=== PATIENT | female | born 1960 | race African-American/Black ===

== ENCOUNTER 2024-04-26 22:15 | Emergency (ER) | payer OTHER, SELFPAY ==
[2024-04-26 22:17] VITALS: BP 193/109; PULSE 89; RESP 15; TEMP 36.3; O2SAT 99
--- NOTE | 2024-04-26 23:54 | ED.BURNSMOKE ---
HPI - Burn/Smoke Inhalation General Chief complaint: Burn/Smoke Inhalation Stated complaint: bilateral hand huntley Time Seen by Provider: 04/26/24 23:26 Source: patient Mode of arrival: ambulatory Limitations: no limitations History of Present Illness HPI Narrative: This is a 63 year old female that presents to the ER for bilateral hand huntley. Reports she was using a hot glue gun tonight and accidentally got hot glue on her hands. Reports huntley to the right palm and left dorsal hand. She is up-to-date on tetanus vaccination. Review of Systems Review of Systems: CONSTITUTIONAL: Denies fever SKIN: Reports burn NEUROLOGIC: Denies numbness All systems reviewed & are unremarkable except as noted in HPI and below PMFSH Past Medical History Medical History (Updated 04/27/24 @ 00:30 by Xin Elizabeth PA-C) History of hypertension Social History Social History (Updated 04/26/24 @ 23:59 by Xin Elizabeth PA-C) Substance use: never Exam Narrative: GENERAL: Well-appearing, well-nourished, and in no acute distress. HEAD: Normocephalic, atraumatic. EYES: EOMI. EXTREMITIES: Normal range of motion. Mild edema with a few small blisters to the right hand palmar surface SKIN: Warm, dry, no rash. NEURO: No focal deficits. Alert and oriented x3. PSYCH: Normal mood and affect Course Course Emergency Course: patient educated on wound care Vital Signs Vital signs: Vital Signs Temperature 97.4 F L 04/26/24 22:17 Pulse Rate 89 04/26/24 22:17 Respiratory Rate 15 04/26/24 22:17 Blood Pressure 193/109 H 04/26/24 22:17 Pulse Oximetry 99 04/26/24 22:17 Oxygen Delivery Room Air 04/26/24 22:17 Temperature 97.4 F L 04/26/24 22:17 Pulse Rate 89 04/26/24 22:17 Respiratory Rate 15 04/26/24 22:17 Blood Pressure 193/109 H 04/26/24 22:17 Pulse Oximetry 99 04/26/24 22:17 Oxygen Delivery Room Air 04/26/24 22:17 MDM - Burn/Smoke Inhalation MDM Narrative Medical decision making narrative: patient presents to the emergency department for huntley present to her hands from a hot glue gun. Small burn noted to the right hand palmar surface with small blisters present. No notable injury to the left hand. She is up-to-date on tetanus vaccination. Wounds were cleansed and covered with antibiotic ointment and a bandage. She was educated on further wound care. She is to follow up with primary provider. She was given warnings to return to the ER Critical Care Time Critical Care Time Critical Care Time: No Discharge Plan Discharge Clinical Impression: Burn of hand Qualifiers: Encounter type: initial encounter Burn of hand location: palm Laterality: right Burn degree: partial thickness (2nd degree) Qualified Code(s): T23.251A - Burn of second degree of right palm, initial encounter Patient Disposition: Home, Self-Care Condition: Stable Instructions: Antibiotic Form Additional Instructions: Return to the emergency department if you experience fever, redness or swelling of your wound, abnormal drainage from your wound, or any other symptoms that are concerning to you. Apply antibiotic ointment daily. Do not soak the wound. Clean with mild soap and water daily Follow-up with your primary care doctor for wound check Patient Language: French Follow-up/Referrals: UNKNOWN,DOCTOR [Non-Staff] -
[2024-04-27 00:42] VITALS: BP 146/105; PULSE 93; RESP 16; O2SAT 100
[2024-04-27] MEDS: traMADol HCL (*CRX) 50 MG TABLET PO (00:52)
--- OUTSIDE RECORDS SUMMARY | 2024-05-04 00:10 | XMS_ITS | Encounter Summary ---
Author Organization [facility] Address [address] [place] [address]. [place] [address] [place] [address] Care Team Providers Care Brick Shader Name Role Phone Josiah Guzman Primary Care Provider [phone] Reason for Visit * Reason Onset Date Comments Referral 04/17/2023 Encounter Details Date Type Department Care Team (Late st Contact Info) Description 04/17/2023 Telephone [facility] Orthopedic & Sports Medicine - [place] [address] [place] [address] Tae Myers MD [address] [place] [address] Referral Social History Tobacco Use Types Packs/Day Years Used Date Smoking Tobacco: Never Assessed Comments Unknown Sex and Gender Information Value Date Recorded Sex Assigned at Not on file Legal Sex Female 4:05 PM APPLICATION PACKAGING CONSULTANT Gender Identity Not on file Sexual Orientation Not on file documented as of this encounter Progress Notes * Georgiana Wakefield RN - 04/26/2023 3:54 PM CST Will wait for disk ICATION PACKAGING CONSULTANT * Iveth Perez - 04/26/2023 12:43 PM CSTSummary: Referral - RT hand Patient called back in about letter received - her information is all updated - we had incorrect phone numbers. Date of injury was November or December and while moving she noticed that she hurt the RT index finger. She said currently she had it wrapped up but it did lock up once since on her. She is having hard time trying to chop things and cook. She will be dropping on the disc and report to us hopefully by tomorrow. Address given. RT index injury [phone] ICATION PACKAGING CONSULTANT * Georgiana Wakefield RN - 04/20/2023 1:36 PM CST 3rd call lvm ICATION PACKAGING CONSULTANT * Georgiana Wakefield RN - 04/18/2023 1:09 PM CST 2nd call lvm If pt calls back see task below ICATION PACKAGING CONSULTANT * Georgiana Wakefield RN - 04/17/2023 11:54 AM CST Called pt from referral no answer left message to call back. When pt calls back we need more information on why patient needs to be see.when date of injury is and we need a copy of xray on disk and report prior to seeing patient. ICATION PACKAGING CONSULTANT documented in this encounter Plan of Treatment Not on file documented as of this encounter Visit Diagnoses Not on filedocumented in this encounter Care Teams Brick Shader Relationship Specialty Start Date End Date Josiah Guzman PA [address] [address] PCP - General PHYSICIAN HYDROGEOLOGY PROFESSOR 04/17/23 documented as of this encounter
--- OUTSIDE RECORDS SUMMARY | 2024-05-04 00:10 | XMS_ITS | Encounter Summary ---
Author Organization [facility] Address [address] [place] [address]. [place], [place] [address] [place] [id number] Care Team Providers Care Tin Recovery Worker Name Role Phone Josiah Guzman Primary Care Provider [phone] Reason for Referral * Occupational Therapy (Routine) - Closed Specialty Diagnoses / Procedures Referred By Contact Referred To Contact Occupational Therapy / [facility] Occupational Therapy Diagnoses Finger pain, right OA (osteoarthritis) of finger, right Procedures OFFICE/OUTPATIENT NEW LOW MDM 30-44 MINUTES OFFICE/OUTPT VISIT,NEW,LEVL IV OFFICE/OUTPT VISIT,NEW,LEVL V OFFICE/OUTPT VISIT,EST,LEVL III OFFICE/OUTPT VISIT,EST,LEVL IV OFFICE/OUTPT VISIT,EST,LEVL V Elizabeth Emery MD [address] [place] [address] Phone: tel: fax: [facility] [place] [address] Phone: tel: fax: Referral ID Status Reason Start Date Expiration Date V isits Requested Visits Authorized [id number] Closed Specialty Services 05/09/2023 09/06/2023 16 16 ING UNDERWRITER Reason for Visit * Reason Comments New Patient Rt index finger inju ry from 12/2022. Pain worse at night. * Consultation/Treatment (Routine) - Closed Specialty Diagnoses / Procedures Referred By Contac t Referred To Contact ORTHOPAEDICS Diagnoses Displaced fracture of middle phalanx of finger of right hand Josiah Guzman PA [address] [address] Phone: tel: fax: Tae Myers MD [address] [place] [address] Phone: tel: fax: Referral ID Status Reason Start Date Expiration Date Visits Re quested Visits Authorized [id number] Closed 04/07/2023 04/06/2024 4 4 Encounter Details Date Type Department Care Team (Late st Contact Info) Description 05/14/2023 2:00 PM SELLING UNDERWRITER Office Visit [facility] Orthopedic & Sports Medicine - [place] [address] [place] [address] Elizabeth Emery MD [address] [place], [place] [phone] New Patient (Rt index finger injury from 12/2022. Pain worse at night. ) Social History Tobacco Use Types Packs/Day Years Used Date Smoking Tobacco: Never Passive Smoke Exposure: Never Smokeless Tobacco: Never Tobacco Cessation:Counseling Given: No Alcohol Use Standard Drinks/Week Comments Never 0 (1 standard drink = 0.6 oz pur e alcohol) PHQ-2 Answer Date Recorded Patient Health Questionnaire-2 Score 0 05/14/2023 Comments Unknown Sex and Gender Information Value Date Recorded Sex Assigned at Not on file Legal Sex Female 4:05 PM SELLING UNDERWRITER Gender Identity Not on file Sexual Orientation Not on file documented as of this encounter Last Filed Vital Signs Vital Sign Reading Time Taken Comments Blood Pressure 152/94 05/14/2023 2:49 PM SELLING UNDERWRITER Pulse 82 05/14/2023 1:57 PM SELLING UNDERWRITER Temperature 36.3 ??C (97.4 ??F) 05/14/2023 1:57 PM CS T Respiratory Rate - - Oxygen Saturation - - Inhaled Oxygen Concentration - - Weight 97.3 kg (214 lb 6.4 oz) 05/14/2023 1:57 P M SELLING UNDERWRITER Height 156.2 cm (5' 1.5 ) 05/14/2023 1:57 PM SELLING UNDERWRITER Body Mass Index 39.85 05/14/2023 1:57 PM SELLING UNDERWRITER documented in this encounter Progress Notes * Elizabeth Emery MD - 05/14/2023 2:00 PM CST Images from the original note were not included. Office Progress Note Reason for Visit: New Patient (Rt index finger injury from 12/2022. Pain worse at night. ) History of Present Illness: Patient referred for evaluation of chronic right index finger pain. Has noted pain symptoms in the finger since injury event in December of this year when she was moving boxes. Initially with significant swelling at the PIP aspect of the finger along with diffuse swelling from the DIP down to the MCP. Associated with some stiffness and difficulty with flexion gripping activities. Patient treated conservatively with relative rest and decreased use/gripping activities. Unfortunately has had persistent pain symptoms over the last several months. Prompted visit to her primary care physician for evaluation. Did get an x-ray obtained at the end of March on-base. X-ray showed some tiny ossifications well-corticated at the DIP of the index finger ulnar aspect. Had some minor degenerative changesnoted at the MCP and PIP of the digit as well with some spurring but fairly well-preserved joint spacing. No other bony abnormality appreciated. Patient has not had any directed treatments to her finger. Has not splinted finger.'s not using anymedications for pain symptoms other than occasional Tylenol no previous significant injury to the right hand or index finger. Patient is right-handed. Patient most interested in understanding becauseof pain symptoms and any treatment options going forward to help alleviate pain symptoms and improve function. Patient still notes some mild diffuse swelling throughout the finger primarily at the PIP going down to the MCP. Has had occasional catching sensation in the finger mostly at the PIP. Past medical/surgical/medication list history reviewed updated as written below. ROS: Musculoskeletal: See HPI Constitutional: Negative. Skin: Negative. Neurological: Negative. Respiratory: Negative. Cardiovascular: Negative Endo/Heme/Allergies: Negative. Gastrointestinal: Negative. Genitourinary: Negative. Medications: Current Outpatient Medications: albuterol sulfate HFA 108 (90 Base) MCG/ACT inhaler, , Disp: , Rfl: calcium carb-cholecalciferol (CALTRATE+D) 600-10 MG-MCG Tab tablet, , Disp: , Rfl: cetirizine (ZYRTEC) 10 MG tablet, , Disp: , Rfl: diclofenac sodium (VOLTAREN) 1 % gel, Apply 2 g topically 2 (two) times daily as needed., Disp: 100g, Rfl: 2 docusate sodium (COLACE) 100 MG capsule, , Disp: , Rfl: fluocinonide (LIDEX) 0.05 % cream, , Disp: , Rfl: meloxicam (MOBIC) 15 MG tablet, , Disp: , Rfl: montelukast (SINGULAIR) 10 MG tablet, , Disp: , Rfl: omega-3 fatty acid (FISH OIL) 500 MG capsule, , Disp: , Rfl: [place]-3 Fatty Acids (OMEGA III EPA+DHA) 1000 MG Cap, , Disp: , Rfl: omeprazole (PRILOSEC) 40 MG capsule, , Disp: , Rfl: oyster shell calcium 500 mg, elemental, (OSCAL) 500 MG tablet, , Disp: , Rfl: rosuvastatin (CRESTOR) 20 MG tablet, , Disp: , Rfl: telmisartan (MICARDIS) 40 MG tablet, , Disp: , Rfl: vitamin D3, cholecalciferol, 125 mcg capsule, , Disp: , Rfl: Allergies: Allergies Allergen Reactions Erythromycin Rash Tetracycline Rash Rash in mouth Medical History: Past Medical History: Diagnosis Date Arthritis Hypertension Surgical History: Past Surgical History: Procedure Laterality Date APPENDECTOMY Social History: Social History Socioeconomic History Marital status: Tobacco Use Smoking status: Never Passive exposure: Never Smokeless tobacco: Never Vaping Use Vaping Use: Never used Substance and Sexual Activity Alcohol use: Never Drug use: Never Family History: Family History Problem Relation Name Age of Onset Heart Disease Mother [place] Diabetes Maternal Grandmother Darline VITALS: Filed Vitals: 05/14/23 1357 BP: (!) 143/90 Pulse: 82 Temp: 97.4 ??F (36.3 ??C) TempSrc: Temporal Weight: 97.3 kg (214 lb 6.4 oz) Height: 1.562 m (5' 1.5 ) PE: Physical exam: General: Patient's appearance is normal, well-nourished, well-developed, no apparent distress Neuro psych: Alert and oriented x4, normal voice/speech/tone, normal judgment and mood Skin: No significant rash or erythematous eruption, swelling or evidence of skin infection Neuromuscular: General strength and tone throughout normal gait is normal Musculoskeletal: Right hand/index finger: Very mild swelling noted to the index finger from the PIP down to the MCP.No swelling at the DIP. No deformity appreciated. No redness. Patient is able to flex fully at the MCP PIP and DIP though with some stiffness appreciated along all 3 joints. Mild tenderness to palpation dorsal and radial aspect of the MCP, volar and dorsal aspect of the PIP and radial aspect of theDIP. No shaft tenderness palpation along the distal middle or proximal phalanx. No metacarpal tenderness to palpation. All joints of all other digits are nontender to palpation. No radial or ulnar laxity across the MCP DIP or PIP of the index finger. Procedures X-ray as detailed in the HPI Diagnoses/Impression: 1. Finger pain, right Ambulatory referral to Occupational Therapy diclofenac sodium (VOLTAREN) 1 % gel 2. OA (osteoarthritis) of finger, right Ambulatory referral to Occupational Therapy diclofenac sodium (VOLTAREN) 1 % gel Recommendations and Plan: Right finger pain across multiple joints DIP PIP and MCP consistent with degenerative arthritis with or without soft tissue injury sprain. Possibility of old avulsion fracture of the distal aspect ofthe middle phalanx. Recommend optimizing conservative treatment to include occupational/hand therapy for range of motion and modality treatment. May try diclofenac gel/cream application to the jointsto relieve pain symptoms from arthritis. Finger silicone sleeve provided as well for comfort. Plan follow-up 6 weeks after occupational therapy and gel treatment applications. All questions answered patient agrees with plan I personally spent _30____ minutes spent total on patient encounter today. This includes [id number] and non [id number] time with review of chart and studies, interval history and physical exam, decision making process, ordering of diagnositic/therapeutic tests or procedures, educational and prevention counseling and excludes time spent performing separately reportable services I personally spent additional ____ minutes during encounter today performing therapeutic or diagnostic procedure(s). ELIZABETH EMERY MD 05/14/2023 Portions of this note were dictated using [employer] speech recognition software. Occasional wrong wordor sound-alike substitutions may have occurred due to the inherent limitations of voice recognition software. Please read the chart carefully and recognize, using context, where the substitutions may have occurred. ING UNDERWRITER documented in this encounter Plan of Treatment Scheduled Referrals Name Type Priority Associated Diagnoses Orde r Schedule Ambulatory referral to Occupational Therapy Referral Routine Finger pain, right OA (osteoarthritis) of finger, right Ordered: 05/14/2023 documented as of this encounter Visit Diagnoses Diagnosis Finger pain, right- Primary Pain in limb OA (osteoarthritis) of finger, right documented in this encounter Care Teams Tin Recovery Worker Relationship Specialty Start Date End Date Josiah Guzman PA [address] [phone] PCP - General PHYSICIAN GIN OPERATOR 04/17/23 documented as of this encounter
--- OUTSIDE RECORDS SUMMARY | 2024-05-04 00:10 | XMS_ITS | Encounter Summary ---
Author Organization [facility] Address [address] [place] [address]. [place], [place] [address] [place] [address] Care Team Providers Care Sql Server Bi Developer Name Role Phone Josiah Guzman Primary Care Provider [phone] Reason for Visit * Reason Comments Finger Injury * Occupational Therapy (Routine) - Closed Specialty Diagnoses / Procedures Referred By Contact Referred To Contact Occupational Therapy / [facility] Occupational Therapy Diagnoses Finger pain, right OA (osteoarthritis) of finger, right Procedures OFFICE/OUTPATIENT NEW LOW MDM 30-44 MINUTES OFFICE/OUTPT VISIT,NEW,LEVL IV OFFICE/OUTPT VISIT,NEW,LEVL V OFFICE/OUTPT VISIT,EST,LEVL III OFFICE/OUTPT VISIT,EST,LEVL IV OFFICE/OUTPT VISIT,EST,LEVL V Hong Pena MD [address] [place] [address] Phone: tel: fax: [facility] [place] [address] Phone: tel: fax: Referral ID Status Reason Start Date Expiration Date V isits Requested Visits Authorized [id number] Closed Specialty Services 05/09/2023 09/06/2023 16 16 Encounter Details Date Type Department Care Team (Latest Contact Info) Description 05/24/2023 12:45 PM FLASK CLEANER - 05/24/2023 11:59 PM FLASK CLEANER Hospital Encounter [facility] [place] [address] oHng Pena MD [address] [place] [address] Ileana Gunderson, [place] [address] Finger Injury Discharge Disposition: Home or Self Care (Routine Discharge) Social History Tobacco Use Types Packs/Day Years Used Date Smoking Tobacco: Never Passive Smoke Exposure: Never Smokeless Tobacco: Never Alcohol Use Standard Drinks/Week Comments Never 0 (1 standard drink = 0.6 oz pur e alcohol) PHQ-2 Answer Date Recorded Patient Health Questionnaire-2 Score 0 05/14/2023 Comments Unknown Sex and Gender Information Value Date Recorded Sex Assigned at Not on file Legal Sex Female 4:05 PM FLASK CLEANER Gender Identity Not on file Sexual Orientation Not on file documented as of this encounter Discharge Instructions * Patient Instructions* Ileana Gunderson, OTR - 05/24/2023 12:45 PM FLASK CLEANER Access Code: [email or web address] URL: [email or web address] Date: 05/24/2023 Prepared by: Ileana Gunderson Exercises - Seated Finger MP PROM - 3-4 x daily - 7 x weekly - 1 sets - 1-2 reps - 30-60 seconds hold - Seated Finger PIP Flexion PROM - 3-4 x daily - 7 x weekly - 1 sets - 1-2 reps - 30-60 seconds hold - Seated Finger Composite Flexion Stretch - 3-4 x daily - 7 x weekly - 1 sets - 1-2 reps - 30-60 seconds hold - Finger MP Flexion AROM - 3-4 x daily - 7 x weekly - 1 sets - 10-15 reps - Seated Finger PIP Flexion AROM - 3-4 x daily - 7 x weekly - 1 sets - 10-15 reps - Finger Spreading - 3-4 x daily - 7 x weekly - 1 sets - 10-15 reps - Seated Claw Fist AROM - 10 x daily - 7 x weekly - 1 sets - 10-20 reps - Hand AROM Composite Flexion - 10 x daily - 7 x weekly - 1 sets - 10-20 reps K CLEANER documented in this encounter Medications at Time of Discharge albuterol sulfate HFA 108 (90 Base) MCG/ACT inhaler 04/05/2023 calcium carb-cholecalcif dahiana (CALTRATE+D) 600-10 MG-MCG Tab tablet 10/27/2022 cetirizine (ZYRTEC) 10 MG tablet 04/05/2023 diclofenac sodium (VOLTAREN) 1 % gelIndications:F osei pain, right,OA (osteoarthritis) of finger, right Apply 2 g topically 2 (two) times daily as needed. 100 g 2 05/14/2023 docusate sodium (COLACE) 100 MG capsule 04/05/2023 fluocinonide (LIDEX) 0.05 % cream 09/23/2022 meloxicam (MOBIC) 15 MG tablet 04/05/2023 montelukast (SINGULAIR) 10 MG tablet 04/05/2023 omega-3 fatty acid (FISH OIL) 500 MG capsule 05/16/2022 Mcgraws-3 Fatty Acids (OMEGA III EPA+DHA) 1000 MG Cap 10/27/2022 omeprazole (PRILOSEC) 40 MG capsule 12/08/2022 oyster shell calcium 500 mg, elemental, (OSCAL) 500 MG tablet 04/05/2023 rosuvastatin (CRESTOR) 20 MG tablet 04/05/2023 telmisartan (MICARDIS) 40 MG tablet 04/05/2023 vitamin D3, cholecalciferol, 125 mcg capsule 04/05/2023 documented as of this encounter Progress Notes * Ileana Gunderson, OTR - 05/24/2023 12:45 PM CST Occupational Therapy Evaluation Patient name: Ivon Ibrahim : 1960 Eval Date: 05/24/2023 Diagnosis: SNOMED CT(R) 1. Pain in finger of right hand PAIN IN FINGER OF RIGHT HAND 2. OA (osteoarthritis) of finger, right OSTEOARTHRITIS OF FINGER JOINT OF RIGHT HAND 3. Weakness ASTHENIA 4. Stiffness in joint JOINT STIFFNESS Start time: 1245 End Time: 1345 Subjective: Pain Level 3-4/10. At worst pain: 10/10 At best pain: 1/10 See patient intake form for details. Injury in December of 2022. Pt was carrying a moving box and hitin door frame. Pain comes and goes and some days are better than others. Patient reports pain and difficulty with cutting with knife. Has trouble with washing her hands. Typing and using her mouse causes difficulty. Trouble pushing lotion bottles. 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 Patient enjoys sewing, patient, makes body products, wood working. Past Medical History: Diagnosis Date Arthritis Hypertension Current Outpatient Medications Medication Instructions albuterol sulfate HFA 108 (90 Base) MCG/ACT inhaler calcium carb-cholecalciferol (CALTRATE+D) 600-10 MG-MCG Tab tablet cetirizine (ZYRTEC) 10 MG tablet diclofenac sodium (VOLTAREN) 2 g, Topical, 2 times daily PRN docusate sodium (COLACE) 100 MG capsule fluocinonide (LIDEX) 0.05 % cream meloxicam (MOBIC) 15 MG tablet montelukast (SINGULAIR) 10 MG tablet omega-3 fatty acid (FISH OIL) 500 MG capsule Mcgraws-3 Fatty Acids (OMEGA III EPA+DHA) 1000 MG Cap omeprazole (PRILOSEC) 40 MG capsule oyster shell calcium 500 mg, elemental, (OSCAL) 500 MG tablet rosuvastatin (CRESTOR) 20 MG tablet telmisartan (MICARDIS) 40 MG tablet vitamin D3, cholecalciferol, 125 mcg capsule Objective: Orientation: AxOx4 Direction Following: WNL Behavior: cooperative Attention: on task Comments: Patient is right hand dominant. Edema: R DPC 18.6 cm R IF PIP 6.7 cm L DPC 18.2 cm L IF PIP 6.5 cm Palpation: Tender along lateral and medial aspects of index finger. Sensation: Pt denies numbness/tingling. Comments: R UE wrist AROM and strength normal. Digit ROM (degrees) RT: Active IF MPJ flex/ext(90??/+20??) 38 IF VWS=493 PIPJ flex/ext (100??/0??) 92 DIPJ flex/ext (70??/0??) 28 Strength (lbs) Rt UE Rt UE Rt UE Mean LT UE Gross Grasp 20 19 24 20.67 50 2 Point Prehension 4 4 8 3 Jaw Tyron Prehension 7 7 10 Lateral Prehension 10 10 16 second and third trials not completed due to pain Additional Comments: 9 hole peg test R 0:33 Patient Rated Wrist Hand Evaluation 59% impaired O: Initial Evaluation completed with patient education on evaluation findings and plan of care. HEP Instruction: verbal, written , and demonstrational instruction Other Rx: Educated on incorporating use of her index finger into every day activities in pain free manner. Issued compression sleeve with wearing schedule discussed. Outcome tool: see above Timed Codes: (Minutes = Units) 8 to 22=1 23 to 37=2 38 to 52=3 53 to 67=4 Timed Code Tx Minutes 15 Units 1 Total Tx Time 60 15 Therapeutic Exercise, 45 Mod Procedures: Eval 16v approved A: Patient demonstrated good understanding of above education and HEP. Rehab Potential: good OT COMPLEXITY Profile: Moderate-Espanded medical and therapy history and additional review of physical, cognitiveand psychosocial history. Assessment/Performance Deficits: Motor: Aligns, Stabilizes, Positions, Bends, Flotation Operator, Moves, Lifts, and Endures HIGH (5 or more) Clinical Decision Making Statement/Assessment: MODERATE Analytic Complexity Ivon Ibrahim is pleasant 62 year old female referred to skilled Occupational Therapy following injury to her right/indexfinger in December of 2022. She presents today with pain, edema, decreased range of motion, decreasedgrip/pinch strength affecting ability to engage in daily tasks and occupations. She would benefit from skilled Occupational Therapy to address the above concerns in order to improve independence, success, and safety with ADLs, IADLs, work and leisure pursuits as well as improving her quality of life. Overall Evaluation Complexity Level: Eval - MOD Ivon Ibrahim presents to the department with the following problems: Increased pain AROM Limitations Decreased Strength Decreased cemetery manager strength Decreased pinch strength Increased edema Functional limitations Impaired fine motor coordination Her goals have been established collaboratively with the therapist. She has been instructed of the risk and benefits of outpatient occupational therapy and agrees with the plan of care. Patient's Goal: regain mobility in my finger, less pain Short Term Goals: (Achieve by: re-evaluation ) Increase AROM/PROM R IF MP flexion 60 degrees or greater for daily tasks Decrease pain to 1/10 or less during functional activities to improve quality of life. Decrease edema R IF PIP 6.6 cm or less for greater freedom of movement. Independent with HEP for improved carryover of learned tasks and activities. Increase cemetery manager strength R hand 32# for cooking tasks. Increase pinch strength increase R hand 2pt/3pt/lateral pinch by 2# each for work activities. Independent with prior functional limitations per patient report Pt to complete 9 hold peg test R hand in 0:30 for work activities. Halfway Goals: (Achieve by: discharge ) 1.) Ivon Ibrahim to report score on PRWHE to 30% impaired or less for improved quality of life. 2.) Ivon Ibrahim to demonstrate WREN of her R IF to 200 or greater for daily tasks and activities. P: Skilled occupational therapy to include: AROM, PROM, Strengthening, Manual Therapy, Fluidotherapy, ADL retraining, Patient Education, Home exercise program, and fine motor coordination Next Visit: Review HEP and patient education, complete reevaluation and review/update HEP as needed If patient feels need to return to therapy prior to re-evaluation, utilize hot pack prior to activity, passive stretching, cemetery manager/pinch strengtheing Frequency: 1 times per week for 30-60 minutes for 4-6 visits. At this time, due to pt work schedule, she plans to complete her home program and return prior to her MD appt for re-evaluation. She is to contact clinic if she feels need to return sooner for direct treatment. Therapist: EMILIE MIRAMONTES Date: 05/24/23 Time: 12:45 PM Physician Signature: Date: Time: Ivon Ibrahim 1960 Cosigned by Hong Pena MD at 05/24/2023 2:58 PM FLASK CLEANER K CLEANER K CLEANER documented in this encounter Plan of Treatment Not on file documented as of this encounter Visit Diagnoses Diagnosis Pain in finger of right hand- Primary Pain in limb OA (osteoarthritis) of finger, right Weakness Other malaise and fatigue Stiffness in joint Stiffness of joint, not elsewhere classified, unspecified site documented in this encounter Care Teams Sql Server Bi Developer Relationship Specialty Start Date End Date Josiah Guzman PA [address] [address] PCP - General PHYSICIAN SHOE CUTTER 04/17/23 documented as of this encounter
--- OUTSIDE RECORDS SUMMARY | 2024-05-04 00:10 | XMS_ITS | Encounter Summary ---
Author Organization [facility] Address [address] [place] [address]. [place], [place] [address] [place] [address] Care Team Providers Care Anesthesia Attending Name Role Phone Josiah Guzman Primary Care Provider [phone] Reason for Visit * Reason Comments Finger Injury * Occupational Therapy (Routine) - Closed Specialty Diagnoses / Procedures Referred By Contact Referred To Contact Occupational Therapy / [facility] Occupational Therapy Diagnoses Finger pain, right OA (osteoarthritis) of finger, right Procedures OFFICE/OUTPATIENT NEW LOW MDM 30-44 MINUTES OFFICE/OUTPT VISIT,NEW,LEVL IV OFFICE/OUTPT VISIT,NEW,LEVL V OFFICE/OUTPT VISIT,EST,LEVL III OFFICE/OUTPT VISIT,EST,LEVL IV OFFICE/OUTPT VISIT,EST,LEVL V Hong Pena MD [address] [place] [address] Phone: tel: fax: [facility] [place] [address] Phone: tel: fax: Referral ID Status Reason Start Date Expiration Date V isits Requested Visits Authorized [id number] Closed Specialty Services 05/09/2023 09/06/2023 16 16 Encounter Details Date Type Department Care Team (Latest Contact Info) Description 06/21/2023 2:45 PM SHEAR SETTER - 06/21/2023 11:59 PM SHEAR SETTER Hospital Encounter [facility] [place] [address] Hong Pena MD [address] [place] [address] Ileana Gunderson, [place] [address] Finger Injury Discharge Disposition: Home or Self [...] on file Legal Sex Female 4:05 PM SHEAR SETTER Gender Identity Not on file Sexual Orientation Not on file documented as of this encounter Medications at Time of Discharge [...] acid (FISH OIL) 500 MG capsule 05/16/2022 Archer-3 Fatty Acids (OMEGA III EPA+DHA) 1000 MG Cap 10/27/2022 omeprazole (PRILOSEC) 40 MG capsule 12/08/2022 oyster shell calcium 500 mg, elemental, (OSCAL) 500 MG tablet 04/05/2023 rosuvastatin (CRESTOR) 20 MG tablet 04/05/2023 telmisartan (MICARDIS) 40 MG tablet 04/05/2023 vitamin D3, cholecalciferol, 125 mcg capsule 04/05/2023 documented as of this encounter Progress Notes * Ileana Gunderson, OTR - 06/21/2023 2:45 PM CST [facility] [address] [facility] [place] [address] [place] [address] Occupational Therapy UE Discharge Summary Name: Ivon Ibrahim : 1960 Time in: 1450 Time out: 1530 Diagnosis: SNOMED CT(R) 1. Pain in finger of right hand PAIN IN FINGER OF RIGHT HAND 2. OA (osteoarthritis) of finger, right OSTEOARTHRITIS OF FINGER JOINT OF RIGHT HAND 3. Weakness ASTHENIA 4. Stiffness in joint JOINT STIFFNESS Date: 06/21/23 Reporting Period from 05/24/23 to 06/21/23 Visits: 2 (pt return to OT for re-evaluation after completing home program) Missed appt: 0 HEP compliance: Good Pain: 0/10 at rest 4/10 with activities Edema: R DPC 18.2 cm (18.6 cm) R IF PIP 6.4 cm (6.7 cm) Sensation: denies numbness/tingling Strength (lbs) right hand Current Status (06/21/23 Eval Status (05/24/23) Gross Grasp 50 20.67 2 point prehension 9 4 3 point prehension 12 7 Lateral prehension 15 10 DIGIT ROM Digit ROM (Degrees) Current Status (06/21/23) Eval Status (05/24/23) IF MPJ flex/ext (90/+20) 64 38 PIP flex/ext (100/0) 94 92 DIP flex/ext (70/0) 60 28 IF WREN 218 158 Current Function: Still feels she has some swelling in her finger. Pain can increase with use of her finger. Washing hands has gotten better as has pushing lotion bottles. Using her mouse all day can cause pain after working the entire day. Typing can cause DIP joint in her finger. Feels that her finger has improvedwith doing her home program. 9 hole peg test R 0:19 (0:33) Patient Rated Wrist Hand Evaluation 22% impaired Patient's Goal: regain mobility in my finger, less pain Short Term Goals: (Achieve by: re-evaluation ) Goal met Increase AROM/PROM R IF MP flexion 60 degrees or greater for daily tasks Goal met Decrease pain to 1/10 or less during functional activities to improve quality of life. Goal met Decrease edema R IF PIP 6.6 cm or less for greater freedom of movement. Goal met Independent with HEP for improved carryover of learned tasks and activities. Goal met Increase ship carpenter strength R hand 32# for cooking tasks. Goal met Increase pinch strength increase R hand 2pt/3pt/lateral pinch by 2# each for work activities. Goal met Independent with prior functional limitations per patient report Goal met Pt to complete 9 hold peg test R hand in 0:30 for work activities. Bistro Attendant Goals: (Achieve by: discharge ) 1.) goal met Ivno Ibrahim to report score on PRWHE to 30% impaired or less for improved quality of life. 2.) goal met Ivon Ibrahim to demonstrate WREN of her R IF to 200 or greater for daily tasks and activities. Recommendations: D/C from OT with continued HEP. Patient has met all therapy goals and will continue her home program and use of compression sleeve PRN for edema management. Therapist: EMILIE MIRAMONTES Time: 2:53 PM I certify that the above rehabilitative services are required, authorized, and reviewed. PHYSICIAN SIGNATURE: Date/Time: Patient Name: Ivon Ibrahim : 1960 Cosigned by Hong Pena MD at 06/21/2023 4:03 PM SHEAR SETTER R SETTER R SETTER documented in this encounter Plan of Treatment Not on file documented as of this encounter Visit Diagnoses Diagnosis Pain in finger of right hand- Primary Pain in limb OA (osteoarthritis) of finger, right Weakness Other malaise and fatigue Stiffness in joint Stiffness of joint, not elsewhere classified, unspecified site documented in this encounter Care Teams Anesthesia Attending Relationship Specialty Start Date End Date Josiah Guzman PA [address] [address] [address] - [address] MON[address] 04/17/23 documented as of this encounter
--- OUTSIDE RECORDS SUMMARY | 2024-05-04 00:10 | XMS_ITS | Encounter Summary ---
Author Organization [facility] Address [address] [place] [address]. [place] [address] [place] [address] Care Team Providers Care Education Associate Name Role Phone Josiah Guzman Primary Care Provider [phone] Reason for Visit * Reason Comments Follow Up Rt index finger Encounter Details Date Type Department Care Team (Late st Contact Info) Description 06/26/2023 3:40 PM AIRPORT OPERATIONS SPECIALIST Office Visit [facility] - [place] [address] [place] [address] Elizabeth Emery MD [address] [place] [address] Follow Up (Rt index finger ) Social History Tobacco Use Types Packs/Day Years Used Date Smoking Tobacco: Never Passive Smoke Exposure: Never Smokeless Tobacco: Never Tobacco Cessation:Counseling Given: No Comments:na Alcohol Use Standard Drinks/Week Comments Never 0 (1 standard drink = 0.6 oz pur e alcohol) PHQ-2 Answer Date Recorded Patient Health Questionnaire-2 Score 0 05/14/2023 Comments No Sex and Gender Information Value Date Recorded Sex Assigned at Not on file Legal Sex Female 4:05 PM AIRPORT OPERATIONS SPECIALIST Gender Identity Not on file Sexual Orientation Not on file documented as of this encounter Last Filed Vital Signs Vital Sign Reading Time Taken Comments Blood Pressure 132/88 06/26/2023 1:43 PM AIRPORT OPERATIONS SPECIALIST Pulse 79 06/26/2023 1:43 PM AIRPORT OPERATIONS SPECIALIST Temperature - - Respiratory Rate - - Oxygen Saturation - - Inhaled Oxygen Concentration - - Weight - - Height - - Body Mass Index - - documented in this encounter Progress Notes * Elizabeth Emery MD - 06/26/2023 3:40 PM CST Office Progress Note Reason for Visit: Follow Up (Rt index finger ) History of Present Illness: Patient returns for follow-up on right fourth finger pain symptoms previously diagnosed with osteoarticular arthritis in the digit contributing to pain and stiffness. Patient instructed on conservative treatment for the condition to include Voltaren cream application and I also enrolled her into occupational therapy to work on range of motion of the modalities that might be useful. Recommend against intra-articular injections in the DIP PIP digits due to high propensity for adverse reaction in those joints adverse event such as infection. Since her last visit patient has been moving the digit more applying appropriate occupational therapy stretches and treatments. She is also been using the Voltaren gel. All of these have helped with improvement in her pain symptoms though not complete resolution. She is satisfied at this point to continue with current home program to manage her symptoms. ROS: Musculoskeletal: See HPI Constitutional: Negative. Skin: Negative. Neurological: Negative. Medications: Current Outpatient Medications: albuterol sulfate [...] 500 MG capsule, , Disp: , Rfl: Capac-3 Fatty Acids (OMEGA III EPA+DHA) 1000 MG [...] Never Passive exposure: Never Smokeless tobacco: Never Tobacco comments: na Vaping Use Vaping Use: Never used Substance and Sexual Activity Alcohol use: Never Drug use: Never Family History: Family History Problem Relation Name Age of Onset Heart Disease Mother Delicia Diabetes Maternal Grandmother Darline VITALS: Filed Vitals: 06/26/23 1343 BP: 132/88 Pulse: 79 PE: Physical exam: General: Patient's appearance is normal, well-nourished, well-developed, no apparent distress Neuro psych: Alert and oriented x4, normal voice/speech/tone, normal judgment and mood Skin: No significant rash or erythematous eruption, swelling or evidence of skin infection Musculoskeletal: Right hand/index finger: Still with some very mild diffuse swelling throughout the index finger. Mild tenderness palpation of the DIP and PIP but has full flexion and extension across all joints of the index finger. Normal strength throughout. Procedures Diagnoses/Impression: 1. Finger pain, right 2. OA (osteoarthritis) of finger, right Recommendations and Plan: Finger pain/OA: Patient getting reasonable spots with conservative treatments. No need for additional follow-up in regards to her finger symptoms. Continue with home therapy program and Voltaren cream as needed. No need for splinting. I personally spent _15____ minutes spent total on patient encounter today. This includes tika-jl-gssz and non woht-re-fygh time with review of chart and studies, interval history and physical exam, decision making process, ordering of diagnositic/therapeutic tests or procedures, educational and prevention counseling and excludes time spent performing separately reportable services I personally spent additional ____ minutes during encounter today performing therapeutic or diagnostic procedure(s). ELIZABETH EMERY MD 06/26/2023 Portions of this note were dictated using [employer] speech recognition software. Occasional wrong wordor sound-alike substitutions may have occurred due to the inherent limitations of voice recognition software. Please read the chart carefully and recognize, using context, where the substitutions may have occurred. ORT OPERATIONS SPECIALIST documented in this encounter Plan of Treatment Not on file documented as of this encounter Visit Diagnoses Diagnosis Finger pain, right- Primary Pain in limb OA (osteoarthritis) of finger, right documented in this encounter Care Teams Education Associate Relationship Specialty Start Date End Date Josiah Guzman PA [address] [address] PCP - General PHYSICIAN MICROBIOLOGY LAB TECHNICIAN 04/17/23 documented as of this encounter
--- OUTSIDE RECORDS SUMMARY | 2024-05-04 00:10 | XMS_ITS | Encounter Summary ---
Author Organization [facility] Address [address] [place] [address]. [place], [place] [id number] [place] [address] Care Team Providers Care Beef Cattle Grazier Name Role Phone Lorenzosneha Josiah PUGH Primary Care Provider [phone] Reason for Visit * Reason Comments Image (SCAN) Encounter Details Date Type Department Care Team (Latest Contact Info) Description 04/05/2023 Scan HEALTH INFO [facility] Scanned, Doc Med Group Image (SCAN) Social History Tobacco Use Types Packs/Day Years Used Date Smoking Tobacco: Never Assessed PHQ-2 Answer Date Recorded Patient Health Questionnaire-2 Score 0 05/14/2023 Comments Unknown Sex and Gender Information Value Date Recorded Sex Assigned at Not on file Legal Sex Female 4:05 PM CLINIC ADMINISTRATOR Gender Identity Not on file Sexual Orientation Not on file documented as of this encounter Plan of Treatment Not on file documented as of this encounter Procedures Procedure Name Priority Date/Time Associated Diagnosis Comments IMAGE GENERIC 04/05/2023 IMAGE GENERIC 04/05/2023 documented in this encounter Results * IMAGE GENERIC (04/05/2023) Anatomical Region Laterality Modality Other 04/05/2023 us [facility] Scanned SCANNING Final Resu lt * IMAGE GENERIC (04/05/2023) Anatomical Region Laterality Modality Other 04/05/2023 us Doc [facility] Scanned SCANNING Final Resu lt documented in this encounter Visit Diagnoses Not on filedocumented in this encounter Care Teams Beef Cattle Grazier Relationship Specialty Start Date End Date Josiah Guzman PA [address] [address] PCP - General PHYSICIAN ADMINISTRATIVE SECRETARY 04/17/23 documented as of this encounter
--- OUTSIDE RECORDS SUMMARY | 2024-05-04 00:10 | XMS_ITS | Encounter Summary ---
Author Organization [facility] Address [address] [place] [address]. 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
--- OUTSIDE RECORDS SUMMARY | 2024-05-04 00:10 | XMS_ITS | Encounter Summary ---
Author Organization [facility] Address [address] [place] [address]. [place], [place] [address] [place] [address] Care Team Providers Care Die Cast Die Maker Name Role Phone Josiah Guzman Primary Care Provider [phone] Encounter Details Date Type Department Care Team (Latest Contact Info) Description 06/26/2023 Travel Social History Tobacco Use Types Packs/Day Years Used Date Smoking Tobacco: Never Passive Smoke Exposure: Never Smokeless Tobacco: Never Comments:na Alcohol Use Standard Drinks/Week Comments Never 0 (1 standard drink = 0.6 oz pur e alcohol) PHQ-2 Answer Date Recorded Patient Health Questionnaire-2 Score 0 05/14/2023 Comments No Sex and Gender Information Value Date Recorded Sex Assigned at Not on file 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
--- OUTSIDE RECORDS SUMMARY | 2024-05-04 00:10 | XMS_ITS | Clinical Summary ---
Author Organization [facility] Address [address] [place] [address]. [place], [place] [address] [place] [address] Care Team Providers Care Supervisor Respiratory Name Role Phone Josiah Guzman Primary Care Provider [phone] Allergies Active Allergy Reactions Criticality Noted Date Comments Erythromycin Rash Low 05/14/2023 Tetracycline Rash Low 05/14/2023 Rash in mouth Medications omega-3 fatty acid (FISH OIL) 500 MG capsule 3 Active albuterol sulfate HFA 108 (90 Base) MCG/ACT inhaler 3 Active calcium carb-cholecalci ferol (CALTRATE+D) 600-10 MG-MCG Tab tablet 3 Active cetirizine (ZYRTEC) 10 MG tablet 3 Active vitamin D3, cholecalciferol , 125 mcg capsule 3 Active docusate sodium (COLACE) 100 MG capsule 3 Active fluocinonide (LIDEX) 0.05 % cream 3 Active meloxicam (MOBIC) 15 MG tablet 3 Active montelukast (SINGULAIR) 10 MG tablet 3 Active [place]-3 Fatty Acids (OMEGA III EPA+DHA) 1000 MG Cap 3 Active omeprazole (PRILOSEC) 40 MG capsule 3 Active oyster shell calcium 500 mg, elemental, (OSCAL) 500 MG tablet 3 Active rosuvastatin (CRESTOR) 20 MG tablet 3 Active telmisartan (MICARDIS) 40 MG tablet 3 Active diclofenac sodium (VOLTAREN) 1 % gelIndications: Finger pain, right,OA (osteoarthritis ) of finger, right Apply 2 g topically 2 (two) times daily as needed. 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 Gender Identity Not on file Sexual Orientation Not on file Last Filed Vital Signs Vital Sign Reading Time Taken Comments Blood Pressure 132/88 06/26/2023 1:43 PM OFFICE COORDINATOR RECEPTIONIST Pulse 79 06/26/2023 1:43 PM OFFICE COORDINATOR RECEPTIONIST Temperature 36.3 ??C (97.4 ??F) 05/14/2023 1:57 PM CS T Respiratory Rate - - Oxygen Saturation - - Inhaled Oxygen Concentration - - Weight 97.3 kg (214 lb 6.4 oz) 05/14/2023 1:57 P M OFFICE COORDINATOR RECEPTIONIST Height 156.2 cm (5' 1.5 ) 05/14/2023 1:57 PM OFFICE COORDINATOR RECEPTIONIST Body Mass Index 39.85 05/14/2023 1:57 PM OFFICE COORDINATOR RECEPTIONIST Plan of Treatment Health Maintenance Due Date Last Done Comments Cervical Cancer Screening Pap Smear (Age 30 to 64) Every 3 Years 1960 Colorectal Cancer Screening Colonoscopy (10 Years) 1960 Annual Physical 10/05/1963 Hepatitis C 1978 Cervical Cancer Screening Pap with HPV Testing (Age 30 to 64) Every 5 Years 1990 Cervical Cancer Screening with HPV 1990 Mammogram Screening 2000 COVID-19 Vaccine ( season) 2024 05/03/2023, 07/21/2022, 12/30/2021, Additional history exists Influenza Adult (#1) 2024 05/03/2023, 03/11/2021, 07/14/2019, Additional history exists DTaP, Tdap and Td Vaccines (3 - Td or Tdap) 07/13/2029 07/14/2019, 11/06/2007 RSV Immunization or 60+ Years (1 - 1-dose 75+ series) 10/05/2035 Pneumococcal Vaccine: Pediatrics (0 to 5 Years) and At-Risk Patients (6 to 64 Years) Aged Out 04/11/2012 No longer eligible based on patient's age to complete this topic Meningococcal Vaccine Aged Out 06/07/2017 No irma kevon eligible based on patient's age to complete this topic Zoster Vaccines Completed 01/16/2022, 07/14/2019 RSV Immunizations Under 20 Months Aged Out No longer eligible based on patient's age to complete this topic Insurance [facility] Care Teams Supervisor Respiratory Relationship Specialty Start Date End Date Josiah Guzman PA [address] [address] [place] [address] PCP - General PHYSICIAN RENAL TECHNICIAN 04/17/23
--- OUTSIDE RECORDS SUMMARY | 2024-05-04 00:10 | XMS_ITS | Encounter Summary ---
Author Organization [facility] Address [address] [place] [address]. [place] [address] [place] [address] Care Team Providers Care Combination Welder Name Role Phone Josiah Guzman Primary Care Provider [phone] Reason for Visit * Reason Onset Date Comments Error 04/26/2023 Encounter Details Date Type Department Care Team ([facility] Contact Info) Description 04/26/2023 Telephone [facility] Orthopedic [facility] - [place] [address] [place], [place] [address] Tae Myers MD [address] [place] [address] Error Social History Tobacco Use Types Packs/Day Years Used Date Smoking Tobacco: Never Assessed Comments Unknown Sex and Gender Information Value Date Recorded Sex Assigned at Not on file 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
--- OUTSIDE RECORDS SUMMARY | 2024-05-04 00:10 | XMS_ITS | Encounter Summary ---
Author Organization [facility] Address [address] [place] [address]. 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
== END 2024-04-27 01:07 | disposition home or self-care (01) ==
PROVIDERS: Emergency Provider Physician Assistant
DX: T23.251A Burn of second degree of right palm, initial encounter (principal); T23.062A Burn of unspecified degree of back of left hand, initial encounter; X19.XXXA Contact with other heat and hot substances, initial encounter; I10 Essential (primary) hypertension
CPT/HCPCS: 99283; A9270

== ENCOUNTER 2024-09-15 08:31 | Emergency (ER) | payer OTHER, SELFPAY ==
[2024-09-15 08:57] VITALS: BP 148/89; PULSE 79; RESP 16; TEMP 36.4; O2SAT 97
--- NOTE | 2024-09-15 09:11 | ED.EAR ---
HPI - Ear Problem General Chief complaint: Ear Stated complaint: EARACHE/CLOGGED Time Seen by Provider: 09/15/24 09:11 Source: patient and RN notes reviewed Mode of arrival: ambulatory Limitations: no limitations History of Present Illness HPI Narrative: 63 y/o female presented for c/o bilateral ear pressure for 3 days. States hearing is decreased and she feels like she is on an airplane. Denies tinnitus, dizziness, sob, n/v/d/f/c. Taking zyrtec, flonase, and montelukast as prescribed. Related Data Home Medications ?Medication ?Instructions ?Recorded ?Confirmed ?Last Taken ?Type albuterol sulfate 90 mcg/actuation inhalation 09/15/24 Unknown History aerosol inhaler calcium carbonate mg 09/15/24 Unknown History cetirizine 10 mg tablet mg 09/15/24 Unknown History cholecalciferol (vitamin D3) 125 09/15/24 Unknown History mcg (5,000 unit) capsule diclofenac sodium 1 % topical gel topical 09/15/24 Unknown History fluticasone propionate 50 intranasal 09/15/24 Unknown History mcg/actuation nasal spray,suspension montelukast 10 mg tablet mg 09/15/24 Unknown History rosuvastatin 20 mg tablet mg 09/15/24 Unknown History semaglutide (weight loss) 1.7 mg subcut 09/15/24 Unknown History mg/0.75 mL subcutaneous pen injector (Wegovy) telmisartan 40 mg tablet mg 09/15/24 Unknown History Allergies Allergy/AdvReac Type Severity Reaction Status Date / Time azithromycin Allergy Intermediate rash Verified 09/15/24 09:14 tetracycline Allergy hives Verified 09/15/24 09:14 Review of Systems Review of Systems: CONSTITUTIONAL: denies malaise, body aches, chills, sweats, fever EYES: Denies visual changes, redness, or discharge ENT: Reports rhinorrhea, congestion, otalgia CARDIOVASCULAR: Denies chest pain, palpitations, edema RESPIRATORY: Denies cough, post nasal drainage GASTROINTESTINAL: Denies abdominal pain, nausea, vomiting, diarrhea SKIN: Denies rash or itching NEUROLOGIC: Denies headache PMFSH Past Medical History Medical History (Updated 09/15/24 @ 09:22 by Debbie Crespo APRN) History of hypertension Social History Social History (Updated 04/26/24 @ 23:59 by Xin Elizabeth PA-C) Substance use: never Exam Narrative: GENERAL: well-appearing EYES: conjunctivae clear ENT: Mucous membranes moist. TMs pearly hammond with dull light reflex bilaterally; no tragal tenderness. Oropharynx not erythematous without lesions or exudate, no drooling, no hoarseness, no trismus, uvula midline. CHEST: Clear to auscultation, breath sounds equal. HEART: Regular rate and rhythm. SKIN: Warm, dry NEURO: Alert and oriented x3. PSYCH: Normal mood and affect Course Course Emergency Course: Patient is aware of diagnosis, understands and agrees to treatment plan. Anticipatory guidance given. Patient agrees to follow-up as directed and is aware of reasons to seek care at the emergency department. Portions of this record may have been created with voice recognition software Level of Care: Express Care Visit Vital Signs Vital signs: Vital Signs Temperature 97.6 F 09/15/24 08:57 Pulse Rate 79 09/15/24 08:57 Respiratory Rate 16 09/15/24 08:57 Blood Pressure 148/89 H 09/15/24 08:57 Pulse Oximetry 97 09/15/24 08:57 Temperature 97.6 F 09/15/24 08:57 Pulse Rate 79 09/15/24 08:57 Respiratory Rate 16 09/15/24 08:57 Blood Pressure 148/89 H 09/15/24 08:57 Pulse Oximetry 97 09/15/24 08:57 reviewed Medical Decision Making MDM Narrative Medical decision making narrative: Discussed physical exam findings, no apparent AOM. Pt declines abx at this time stating she will try NSAID and continue current measures. Advised supportive measures and signs/symptoms to go to the ER. Pt is appropriate for outpt treatment and f/u with PCP. Differential Diagnosis Differential Diagnosis: Influenza, covid, sinusitis, OM, strep pharyngitis, URI Vital Signs Vital Signs: Vital Signs Temperature 97.6 F 09/15/24 08:57 Pulse Rate 79 09/15/24 08:57 Respiratory Rate 16 09/15/24 08:57 Blood Pressure 148/89 H 09/15/24 08:57 Pulse Oximetry 97 09/15/24 08:57 Temperature 97.6 F 09/15/24 08:57 Pulse Rate 79 09/15/24 08:57 Respiratory Rate 16 09/15/24 08:57 Blood Pressure 148/89 H 09/15/24 08:57 Pulse Oximetry 97 09/15/24 08:57 Discharge Plan Discharge Clinical Impression: Allergic rhinitis Patient Disposition: Home Condition: Stable Instructions: Antibiotic Form, Allergies (ED) Additional Instructions: Recommendations: continue Flonase spray and Zyrtec (or Claritin/Denise) Motrin or Tylenol every 8 hours as needed for pain Symptomatic treatment includes: rest, fluids, and increase humidity of the air at home. Follow up with your primary care provider in 1 week. Go to the ER for worsening symptoms or concerns. Patient Language: Greenlandic Prescriptions: New ibuprofen 600 mg tablet 600 mg PO TID PRN (Reason: pain) Qty: 15 0RF No Action cetirizine 10 mg tablet calcium carbonate 500 mg calcium (1,250 mg) tablet telmisartan 40 mg tablet montelukast 10 mg tablet albuterol sulfate 90 mcg/actuation HFA aerosol inhaler INHALATION fluticasone propionate 50 mcg/actuation spray,suspension INTRANASAL cholecalciferol (vitamin D3) 125 mcg (5,000 unit) capsule rosuvastatin 20 mg tablet diclofenac sodium 1 % gel TOPICAL Wegovy 1.7 mg/0.75 mL pen injector SUBCUT Follow-up/Referrals: Pavan,Mauro [Other]
== END 2024-09-15 09:31 | disposition home or self-care (01) ==
DX: J30.9 Allergic rhinitis, unspecified (principal); I10 Essential (primary) hypertension
CPT/HCPCS: 99213; G0463

== ENCOUNTER 2025-03-04 09:52 | Emergency (ER) | payer OTHER, SELFPAY ==
--- NOTE | ~2025-03-04 | CT_ITS ---
EXAMINATION: CT brain wo con DATE: 03/04/2025 11:18 INDICATION: Headache. Lightheadedness. TECHNIQUE: Computed tomography (CT) of the head was performed without intravenous contrast. The mA was adjusted according to patient size. Iterative reconstruction technique was employed. The dose-length product was 529.67 mGy-cm. COMPARISON: None FINDINGS: There is no intracranial hemorrhage, acute infarction, or abnormal intracranial mass lesion. There are scattered areas of low attenuation in the cerebral white matter, which is within normal limits for the patient's age. The ventricles are normal in size. The orbits are normal. The paranasal sinuses are clear. The mastoid air cells are normal. IMPRESSION: 1. Normal aging brain. Reviewed, dictated and finalized at location E. IMPRESSION: 1. Normal aging brain.
[2025-03-04 10:08] VITALS: BP 178/100; PULSE 83; RESP 16; TEMP 36.2; O2SAT 97
--- NOTE | 2025-03-04 10:36 | ED.NAVMDI ---
HPI - Nausea/Vomiting/Diarrhea General Chief complaint: Nausea/Vomiting/Diarrhea Stated complaint: n/v since 0500 Time Seen by Provider: 03/04/25 10:36 Source: patient and family Mode of arrival: ambulatory Limitations: no limitations History of Present Illness HPI Narrative: Mary is a 64-year-old female patient presenting to the ER today with complaints of nausea and vomiting since 5:00 a.m. this morning. She reports she has vomited a total of 3 times. Is having some epigastric chest discomfort, and feeling unsteady on her feet, and reporting a headache. Rates her pain currently a 7/10. Has tried taking yulisa tea but afterwards vomited. Is having hot and cold flashes. Last bowel movement was this morning and normal for the patient. Denies any known fevers. Related Data Home Medications ?Medication ?Instructions ?Recorded ?Confirmed ?Last Taken ?Type albuterol sulfate 90 mcg/actuation inhalation 09/15/24 Unknown History aerosol inhaler calcium carbonate mg 09/15/24 Unknown History cetirizine 10 mg tablet mg 09/15/24 Unknown History cholecalciferol (vitamin D3) 125 09/15/24 Unknown History mcg (5,000 unit) capsule diclofenac sodium 1 % topical gel topical 09/15/24 Unknown History fluticasone propionate 50 intranasal 09/15/24 Unknown History mcg/actuation nasal spray,suspension montelukast 10 mg tablet mg 09/15/24 Unknown History rosuvastatin 20 mg tablet mg 09/15/24 Unknown History semaglutide (weight loss) 1.7 mg subcut 09/15/24 Unknown History mg/0.75 mL subcutaneous pen injector (Wegovy) telmisartan 40 mg tablet mg 09/15/24 Unknown History Allergies Allergy/AdvReac Type Severity Reaction Status Date / Time azithromycin Allergy Intermediate rash Verified 03/04/25 11:00 tetracycline Allergy hives Verified 03/04/25 11:00 Review of Systems Review of Systems: Pertinent positives per HPI. Patient denies any fever, chills, rash, visual changes, dizziness, cough, runny nose, sore throat, shortness of breath, chest pain, palpitations, diarrhea, constipation, abdominal pain, or any urinary issues. [facility] Past Medical History Medical History History of hypertension Social History Social History Substance use: never Comments At the time of my signature, I reviewed and agree with the nursing past medical, surgical, social, and family history. There is no relevant family history pertinent to the patient complaint. Exam Narrative: General: Well-developed, well nourished, in no apparent distress Head: Normocephalic, atraumatic Eyes: Pupils equally round and reactive to light bilaterally, EOM intact, sclera and conjunctive clear, no discharge, lids normal Ears: TMs intact and clear, ear canals clear, no drainage, grossly hearing normal. Nose: Nares patent, no discharge, no inflammation, no sinus tenderness. Mouth: Oropharynx without lesions or masses, good dentition, MMM. Tongue midline, even rise and fall of uvula Neck: Supple, trachea midline, no enlargement of anterior or posterior cervical nodes, no thyroid masses or goiter palpable. Cardio: Regular rate and rhythm, s1 and s2 normal, no murmur appreciated. Resp: Clear to auscultation bilaterally anteriorly and posteriorly, no rhonchi, rales, wheezing or rubs Abdomen: Soft, pliable, bowel sounds present in all quadrants, non-tender to palpation, no organomegly, no CVAT tenderness. Musculoskeletal: No deformity, non-tender to palpation, grossly normal range of motion, muscle strength strong and equal, peripheral pulse strong, no edema, no cyanosis, normal gait and station Neuro: Alert and oriented x4 with normal speech, no focal deficits, cranial nerves I through XII intact, muscle strength 5 out of 5, sensation intact bilaterally, negative Romberg test Course Course Emergency Course: Portions of this record may have been created with voice recognition software. Vital Signs Vital signs: Vital Signs Temperature 36.2 C L 03/04/25 10:08 Pulse Rate 83 03/04/25 10:08 Respiratory Rate 16 03/04/25 10:08 Blood Pressure 178/100 H 03/04/25 10:08 Pulse Oximetry 97 03/04/25 10:08 Temperature 36.2 C L 03/04/25 10:08 Pulse Rate 78 03/04/25 13:06 Respiratory Rate 19 03/04/25 13:06 Blood Pressure 162/98 H 03/04/25 13:06 Pulse Oximetry 100 03/04/25 13:06 Vital signs reviewed MDM - Nausea/Vomiting/Diarrhea MDM Narrative Medical decision making narrative: At the time of visit patient is resting comfortably on the exam table. Patient appears to be nontoxic. Complaints of nausea and vomiting since 5:00 a.m. this morning. She reports she has vomited a total of 3 times. Is having some epigastric chest discomfort, and feeling unsteady on her feet, and reporting a headache. Rates her pain currently a 7/10. Has tried taking yulisa tea but afterwards vomited. Is having hot and cold flashes. Last bowel movement was this morning and normal for the patient. Denies any known fevers. Orders for EKG, labs, and CT head ordered. Meclizine was ordered for lightheadedness/dizziness, Zofran for nausea, and Pepcid for GERD symptoms. 1 L normal saline was also ordered EKG: EKG shows sinus rhythm with first-degree block with borderline T-wave abnormality. No ST elevation or depression. Labs: CBC shows white blood cell count of 6.2, H&H of 14.3 in 40.5, platelet count is 284, chemistry shows sodium 138, potassium 3.9, chloride 105, excited 26, BUN of 9, creatinine 0.67, GFR greater than 60 his T is 39?, ALT 33, alk fauces 88, lipase is normal at 91. Urinalysis shows turbid urine with 1+ protein no sign of blood or infection. COVID, influenza, and RSV testing are negative. Diagnostics: CT of the head shows normal aging brain Medications: Pepcid 20 mg IV, Zofran 4 mg IV, 1 L nasal saline, meclizine 25 mg p.o. for dizziness Plan: Patient is feeling better after medications. Patient's blood pressure was 159/108. She has not taken her blood pressure medications today. She does have her blood pressure medications with her-recommend taking them this time. All test were reviewed with the patient she voiced understanding. Her headache and dizziness has resolved. I suspect patient has vertigo with acute nausea/vomiting. Supportive measures were discussed with the patient and they voiced understanding discharge instructions and agrees to treatment plan. Return precautions reviewed Differential Diagnosis Differential diagnosis: Likely traveler's diarrhea, food poisoning, gastroenteritis, clostridium difficile infection, drug-induced nausea and vomiting and dehydration Lab Data 03/04/25 11:03 03/04/25 11:03 Labs: Lab Results 03/04/25 03/04/25 03/04/25 Range/Units 10:52 11:03 11:22 WBC 6.2 (4.5-10.0) K/mm3 RBC 5.29 (4.2-5.4) M/mm3 Hgb 14.3 (12.0-15.0) g/dL Hct 40.5 (37.0-47.0) % MCV 76.6 L (80-100) fl MCH 27.0 (26-34) pg MCHC 35.3 (32-36) g/dl RDW 15.6 H (11.5-14.5) % Plt Count 284 (150-375) k/mm3 MPV 10.1 (7.4-10.4) fl Immature Gran % (Auto) 0.3 (0-0.5) % Neut % (Auto) 75.8 H (45.5-73.1) % Lymph % (Auto) 17.9 L (18.3-44.2) % [place] % (Auto) 5.2 (2.6-8.5) % Eos % (Auto) 0.5 (0-4.4) % Baso % (Auto) 0.3 (0.2-1.2) % Lymph # (Auto) 1.11 (0.9-3.2) K/mm3 [place] # (Auto) 0.3 (0.1-0.6) K/mm3 Eos # (Auto) 0.0 (0-0.3) K/mm3 Baso # (Auto) 0.0 (0.0-0.1) K/mm3 Abs Immat Gran (auto) 0.02 (0.00-0.031) K/mm3 Absolute Neuts (auto) 4.7 (1.3-6.7) K/mm3 Absolute Nucleated RBC 0.000 (0.0-0.012) K/mm3 Nucleated RBC % 0.0 (0.0-0.2) % Sodium 138 (137-145) mmol/L Potassium 3.9 (3.4-5.0) mmol/L Chloride 105 (98-107) mmol/L Carbon Dioxide 26 (22-30) mmol/L Anion Gap 7 (4-12) mmol/L BUN 9 (7-17) mg/dL Creatinine 0.67 L (0.7-1.0) mg/dL Estim Creat Clear Calc 72 ml/min Estimated GFR > 60 (59 - ) Glucose 91 (65-110) mg/dL Calcium 9.4 (8.4-10.2) mg/dL Total Bilirubin 1.2 (0.2-1.3) mg/dL AST 39 H (14-36) U/L ALT 33 (6-35) U/L Alkaline Phosphatase 88 (38-126) U/L Total Protein 7.8 (6.3-8.2) g/dL Albumin 4.5 (3.5-5.1) g/dL Lipase 91 (23-300) U/L Urine Color Yellow (Yellow) Urine Appearance Turbid H (Clear) Urine pH >=9.0 H (5.0-9.0) Ur Specific [place] 1.014 (1.001-1.035) Urine Protein 1+ H (Negative) mg/dL Urine Glucose (UA) Negative (Negative) mg/dL Urine Ketones Negative (Negative) mg/dL Ur Blood (Man) Negative (Negative) Urine Nitrate Negative (Negative) Urine Bilirubin Negative (Negative) Urine Urobilinogen 0.2 (<2.0) mg/dL Leukocyte Esterase Rfl Negative (Negative) VERITO/UL Urine RBC 0-2 (0-2) /hpf Urine WBC 0-5 (0-3) /hpf Ur Squamous Epith Cells None seen (Few) /hpf Urine Bacteria None seen /hpf Urine Casts 0-2 Influenza A (RT-PCR) Negative (Negative) Influenza B (RT-PCR) Negative (Negative) RSV (RT-PCR) Negative (Negative) SARS-CoV-2 RNA (RT-PCR) Negative (Negative) Discharge Plan Discharge Clinical Impression: Acute nausea with nonbilious vomiting, Vertigo Patient Disposition: Home Condition: Stable Instructions: Antibiotic Form, Acute Nausea and Vomiting (ED), Dizziness (ED) Additional Instructions: CT of your head is negative for any sign of acute intracranial process. Labs are reassuring in the ER. EKG is reassuring in the ER Urine does not show any sign of infection COVID, flu, and RSV testing were negative Take prescription medications only as prescribed-meclizine and ondansetron Increase fluids and stay well hydrated Change positions slowly Clear liquids for the next several hours and then may advance to a bland diet then may advanced as tolerated. Follow-up with your PCP in 3-5 days if symptoms persist Return to the ER if you develop any worsening of headache, confusion, weakness fevers, uncontrolled nausea vomiting, chest pain, or shortness of breath Patient Language: [place] Islander Prescriptions: New ondansetron 8 mg tablet,disintegrating 8 mg PO Q8H PRN (Reason: nausea and vomiting) 3 Days Qty: 10 0RF meclizine 25 mg tablet 25 mg PO TID PRN (Reason: dizziness) 7 Days Qty: 21 0RF No Action cetirizine 10 mg tablet calcium carbonate 500 mg calcium (1,250 mg) tablet telmisartan 40 mg tablet montelukast 10 mg tablet albuterol sulfate 90 mcg/actuation HFA aerosol inhaler INHALATION fluticasone propionate 50 mcg/actuation spray,suspension INTRANASAL cholecalciferol (vitamin D3) 125 mcg (5,000 unit) capsule rosuvastatin 20 mg tablet diclofenac sodium 1 % gel TOPICAL Wegovy 1.7 mg/0.75 mL pen injector SUBCUT ibuprofen 600 mg tablet 600 mg PO TID PRN (Reason: pain) Qty: 15 0RF Follow-up/Referrals: [place], [Primary Care Provider] Time of Disposition: 12:45 Quality NIHSS Nursing Documentation ED NIHSS nursing documentation: reviewed/agree
--- NOTE | 2025-03-04 10:44 | ECG_ITS ---
Test Date: 2025-03-04 11:01:34 Measurements Intervals [place] Rate: 83 P: 30 TX: 241 QRS: -12 QRSD: 80 T: 18 QT: 371 QTc: 438 Interpretive Statements SINUS RHYTHM WITH FIRST DEGREE AV BLOCK BORDERLINE T WAVE ABNORMALITY- ANT/INF LEADS BASELINE WANDER- V2 BORDERLINE ECG No previous ECG available for comparison Electronically Signed On 03-04-2025 11:04:49 CDT by Elliott Vick D.O.
--- OUTSIDE RECORDS SUMMARY | 2025-03-04 11:00 | XMS_ITS | Clinical Summary ---
Author Organization [facility] Address [address] [place] [address] Care Team Providers Care Roll Contour Grinder Name Role Phone Josiah Guzman Primary Care Provider [phone] Allergies Active Allergy Reactions Criticality Noted Date [...] montelukast (SINGULAIR) 10 MG tablet 3 Active [place]-3 Fatty Acids (OMEGA III EPA+DHA) 1000 MG [...] on file Legal Sex Female 4:05 PM TUG BOAT ENGINEER Gender Identity Not on file Sexual Orientation Not on file Last Filed Vital Signs Vital Sign Reading Time Taken Comments Blood Pressure 132/88 06/26/2023 1:43 PM TUG BOAT ENGINEER Pulse 79 06/26/2023 1:43 PM TUG BOAT ENGINEER Temperature 36.3 C (97.4 F) 05/14/2023 1:57 PM TUG BOAT ENGINEER Respiratory Rate - - Oxygen Saturation - - Inhaled Oxygen Concentration - - Weight 97.3 kg (214 lb 6.4 oz) 05/14/2023 1:57 P M TUG BOAT ENGINEER Height 156.2 cm (5' 1.5) 05/14/2023 1:57 PM TUG BOAT ENGINEER Body Mass Index 39.85 05/14/2023 1:57 PM TUG BOAT ENGINEER Plan of Treatment Health Maintenance Due Date Last Done Comments Colorectal Cancer Screening Colonoscopy (10 Years) 1960 Annual Physical 10/05/1963 Hepatitis C 1978 Cervical Cancer Screening Pap with HPV Testing (Age 30 to 64) Every 5 Years 1990 Mammogram Screening 2000 Cervical Cancer Screening Pap Smear (Age 30 to 64) Every 3 Years 04/04/2010 04/04/2007 Cervical Cancer Screening with HPV 04/04/2010 Pneumococcal Vaccine: 50+ Years (2 of 2 - PCV) 04/11/2013 04/11/2012 PHQ-2 (Physician [place]) 05/07/2024 05/14/2023 COVID-19 Vaccine ( season) 2025 05/03/2023, 07/21/2022, 12/30/2021, Additional history exists Influenza Adult (#1) 2025 05/03/2023, 03/11/2021, 07/14/2019, Additional history exists DTaP, Tdap and Td Vaccines (3 - Td or Tdap) 07/13/2029 07/14/2019, 11/06/2007 RSV Immunization or 60+ Years (1 - 1-dose 75+ series) 10/05/2035 Meningococcal Vaccine Aged Out 06/07/2017 No irma kevon eligible based on patient's age to complete this topic Zoster Vaccines Completed 01/16/2022, 07/14/2019 Hepatitis A Vaccines Aged Out 02/07/2022, 06/07/2017, 05/15/2017 No longer eligible based on patient's age to complete this topic Meningococcal B Vaccine Aged Out No l onger eligible based on patient's age to complete this topic RSV Immunizations Under 20 Months Aged Out No longer eligible based on patient's age to complete this topic Insurance [facility] Care Teams Roll Contour Grinder Relationship Specialty Start Date End Date Josiah Guzman PA [address] [address] [place] [address] PCP - General PHYSICIAN MINI SHIFTER 04/17/23
--- OUTSIDE RECORDS SUMMARY | 2025-03-04 11:00 | XMS_ITS | Patient Health Record ---
Author Organization [facility] Address [address] [id number] Care Team Providers Care Slasher Tender Name Role Phone Riley Bojorquez Primary Care Provider Kris James Unavailable [phone] Riley Tsai DO Unavailable Unavailable Allergies Allergen (clinical drug ingredient) Drug/Non Drug Allergy documented on EMR Reaction Allergy Type Onset Date Status erythromycin erythromycin (uncoded) Unknown Allergy Active tetracycline tetracycline (uncoded) Unknown Allergy Active Reason For Referral No Information Medications Medication SIG (Take, Route, Frequency, Duration) Notes Start Date End Date Status Pantoprazole Sodium 40 MG Tablet Delayed Release 1 tablet Orally Once a day; Duration: 30 day(s) 03/03/2021 Not-Taking/PRN NexIUM 40 MG Capsule Delayed Release 1 capsule Orally Once a day; Duration: 90 days 04/27/2021 Active Dexilant 60 MG Capsule Delayed Release 1 capsule Orally Once a day 08/10/2021 Active RABEprazole Sodium 20 MG Tablet Delayed Release 1 tablet Orally Once a day; Duration: 90 days 09/15/2021 Active Crestor 10 MG Tablet 1 tablet Orally Onc e a day Active Micardis 40 MG Tablet 1 tablet Orally On ce a day Active ZyrTEC Allergy 10 MG Capsule 2 capsules Orally Once a day Active Albuterol Active Singulair 10 MG Tablet 1 tablet Orally O nce a day Active Fish Oil 875 MG Capsule as directed Orally Active MoviPrep 100 GM Solution Reconstituted as directed Orally once; Duration: 1 dose 12/20/2020 Not-Taking/PRN Omeprazole 40 MG Capsule Delayed Release 1 capsule 30 minutes before morning meal orally once a day; Duration: 90 days 10/20/2020 Active Social History Social History Additional Details Category Social Info Options Details Miscellaneous: Marital status: Occupation: data programmer Drugs/Alcohol(Archived) Do you drink alcohol? No Tobacco Use: smoking never Problems Problem Type SNOMED Code ICD Code Onset Dates Problem Status W/U Status Risk Notes Problem Colon cancer screening (737552320) Colon cancer screening (Z12.11) Active confirmed Last colonoscopy 10 years ago was normal. Problem Gastroesophageal reflux disease without esophagitis (603997661) Gastroesophageal reflux disease without esophagitis (K21.9) Active confirmed Mostly controlled on omeprazole Problem Change in bowel habit (22791577) Change in bowel habits (R19.4) Active confirmed ? IBS but will plan for colonoscopy as due for repeat CRC screening anyway. Problem Left upper quadrant pain (848784672) LUQ abdominal pain (R10.12) Active confirmed Improved but not resolved with omeprazole and avoid of NSAIDs. EGD just significant for mild gastritis (bx with nl gastric/duod enal bx, reflux esophagitis on esophageal bx). Plan Of Treatment Future Test Test Name Order Date EGD 09/27/2020 Colonoscopy 12/20/2020 Esophagram 08/10/2021 Insurance Providers Payer Name Payer Address Payer Phone Subscriber Number Group Number Insured Name Patient Relationship to Insured Coverage Start Date Coverage End Date [facility] [address] [place] [address] [id number] Deon Ibrahim Spouse - patient is the spouse of the insured Medical (General) History Medical History History ICD Code High Blood Pressure High Cholesterol Acid Reflux Surgical History Surgery Date(Month/Year) Colonoscopy 02/2021 EGD 12/2020 appendixcectomy tubal ligation c-sections (2)
[2025-03-04 11:04] LABS: Add Urine Microscopic? YES; Appearance Urine Turbid (Clear); Glucose Urine UA Negative (Negative); Leukocyte Esterase Ur Negative LEU/UL (Negative); Nitrate Urine Negative (Negative); Non Pathogenic Casts 0-2; Specific Grav Ur 1.014 (1.001-1.035)
[2025-03-04 11:12] LABS: Hematocrit 40.5 % (37.0-47.0); Hemoglobin 14.3 g/dL (12.0-15.0); Immature Granulocyte Percent A 0.3 % (0-0.5); Lymphocytes Absolute Auto 1.11 K/mm3 (0.9-3.2); Mean Corpuscular HGB Conc 35.3 g/dl (32-36); Mean Corpuscular Hemoglobin 27.0 pg (26-34); Mean Corpuscular Volume 76.6 fl (80-100); Nucleated Red Blood Cells Absolute Auto 0.000 K/mm3 (0.0-0.012); Nucleated Red Blood Cells Perc 0.0 % (0.0-0.2); Platelet Count Result 284 k/mm3 (150-375); Red Blood Count 5.29 M/mm3 (4.2-5.4); White Blood Count 6.2 K/mm3 (4.5-10.0)
[2025-03-04 11:33] LABS: Alanine Aminotransferase 33 U/L (6-35); Albumin Level 4.5 g/dL (3.5-5.1); Alkaline Phosphatase 88 U/L (38-126); Anion Gap 7 mmol/L (4-12); Aspartate Amino Transferase 39 U/L (14-36); Bilirubin,Total 1.2 mg/dL (0.2-1.3); Blood Urea Nitrogen 9 mg/dL (7-17); Calcium 9.4 mg/dL (8.4-10.2); Carbon Dioxide 26 mmol/L (22-30); Chloride 105 mmol/L (98-107); Estimated CRCL calculation 72 ml/min; Estimated Glomerular Filt Rate > 60; Glucose 91 mg/dL (65-110); Lipase 91 U/L (23-300); Potassium 3.9 mmol/L (3.4-5.0); Sodium 138 mmol/L (137-145); Total Protein 7.8 g/dL (6.3-8.2)
[2025-03-04] MEDS: ONDANSETRON INJ 4 MG/2 ML VIAL IV PUSH (11:34)
[2025-03-04] MEDS: FAMOTIDINE 20 MG/2 ML VIAL IV PUSH (11:34)
[2025-03-04] MEDS: SODIUM CHLORIDE 0.9% IV 1,000 ML 999 ML IV CONT (11:35)
[2025-03-04 11:38] VITALS: PULSE 84; RESP 18; O2SAT 97
[2025-03-04] MEDS: MECLIZINE HCL 25 MG TABLET PO (11:43)
[2025-03-04 11:47] VITALS: BP 159/108
[2025-03-04 12:08] LABS: Influenza A QL RT-PCR Negative (Negative); Influenza B QL RT-PCR Negative (Negative); RSV RNA, RT-PCR Negative (Negative); SARS-CoV-2 RNA PCR Negative (Negative)
[2025-03-04 13:06] VITALS: BP 162/98; PULSE 78; RESP 19; O2SAT 100
--- OUTSIDE RECORDS SUMMARY | 2025-03-04 13:09 | XMS_ITS | Clinical Summary ---
Author Organization [facility] Address [address] [place] [address] Care Team Providers Care Parking Lot Supervisor Name Role Phone Josiah Guzman Primary Care Provider [phone] Allergies Active Allergy Reactions Criticality Noted Date [...] montelukast (SINGULAIR) 10 MG tablet 3 Active [place]-3 Fatty Acids (OMEGA III EPA+DHA) 1000 MG [...] on file Legal Sex Female 4:05 PM RELATIONS COORDINATOR Gender Identity Not on file Sexual Orientation Not on file Last Filed Vital Signs Vital Sign Reading Time Taken Comments Blood Pressure 132/88 06/26/2023 1:43 PM RELATIONS COORDINATOR Pulse 79 06/26/2023 1:43 PM RELATIONS COORDINATOR Temperature 36.3 C (97.4 F) 05/14/2023 1:57 PM RELATIONS COORDINATOR Respiratory Rate - - Oxygen Saturation - - Inhaled Oxygen Concentration - - Weight 97.3 kg (214 lb 6.4 oz) 05/14/2023 1:57 P M RELATIONS COORDINATOR Height 156.2 cm (5' 1.5) 05/14/2023 1:57 PM RELATIONS COORDINATOR Body Mass Index 39.85 05/14/2023 1:57 PM RELATIONS COORDINATOR Plan of Treatment Health Maintenance Due Date [...] 2 - PCV) 04/11/2013 04/11/2012 PHQ-2 (Physician [place]) 05/07/2024 05/14/2023 COVID-19 Vaccine ( season) 2025 [...] patient's age to complete this topic Insurance [facility] Care Teams Parking Lot Supervisor Relationship Specialty Start Date End Date Josiah Guzman PA [address] [address] [place] [address] PCP - General PHYSICIAN WEATHERIZATION INSTALLER 04/17/23
== END 2025-03-04 13:08 | disposition home or self-care (01) ==
PROVIDERS: Emergency Provider Nurse Practitioner Family
DX: R11.2 Nausea with vomiting, unspecified (principal); R42 Dizziness and giddiness; I10 Essential (primary) hypertension; Z20.822 Contact with and (suspected) exposure to COVID-19
CPT/HCPCS: 36415; 70450; 80053; 81001; 83690; 85025; 87637; 93005; 96361; 96374; 96375; 99284; A9270; J2405; J7030